=== PATIENT | female | born 1985 ===

== ENCOUNTER 2020-09-30 08:07 | Outpatient (CLI) | payer OTHER ==
[~2020-09-30 08:07] MED LIST: PANADOL EXTRA500 MG PO; [UNRECOGNIZED DRUG - OTHER] PO
== END 2020-09-30 08:18 | disposition home or self-care (01) ==
LOC: SONOGRAMA 08:07
PROVIDERS: ATTEND Pathology Anatomic Pathology & Clinical Pathology
DX: E04.1 Nontoxic single thyroid nodule (principal)

== ENCOUNTER 2023-01-01 09:07 | Outpatient (CLI) | payer OTHER | END 2023-01-01 09:10 | disposition home or self-care (01) | LOC: SONOGRAMA 09:07 | PROVIDERS: ATTEND Pathology Anatomic Pathology & Clinical Pathology | DX: E04.1 Nontoxic single thyroid nodule (principal) ==